=== PATIENT | male | born 1980 | race Caucasian/White ===

== ENCOUNTER 2017-05-22 11:31 | Inpatient (IN) | payer BC ==
[2017-05-22 12:37] VITALS: BMI 27.4
--- NOTE | 2017-05-22 14:28 | HP ---
HISTORY OF PRESENT ILLNESS: 37 yr old man bipolar d/o, cocaine dependence, methadone maintanence, depression presents for detox. tired of feeling this way, wants to change his life around. 6-pk of beer, 10:30am this morning, cocaine shooting 3 days ago on right wrist, benzos "1/2 stick" this morning, methadone 70mg po this morning from clinic. went to [facility] on 05/20 for 3stitches left palm, with wound on lateral 5th digit and open wound in lateral hand. Recent Travel: denies PAST MEDICAL HISTORY: etoh withdrawal: denies seizure, DT, ICU stay bipolar d/o methadone maintenence PAST SURGICAL HISTORY: denies Social History: Smokin/2 pks/day, started age 16 yrs old Alcohol: Drugs: Family History: denies HTN, DM, cancer in family. Mariya, ( Healthcare proxy) Allergies Fish Containing Products Allergy (Severe, Verified 05/22/17 14:24) Hives No Known Drug Allergies Allergy (Verified 05/22/17 14:24) HOME MEDICATIONS: Home Medications Medication Instructions Recorded NK [No Known Home Medication] 03/19/15 REVIEW OF SYSTEMS CONSTITUTIONAL: Present: chills, weight change: unintentional weight loss over 4 months, loss of appetite, Absent: fever, chills, diaphoresis, generalized weakness, malaise, l HEENT: Present: rhinorrhea Absent: rhinorrhea, nasal congestion, throat pain, throat swelling, difficulty swallowing, mouth swelling, ear pain, eye pain, visual changes CARDIOVASCULAR: Present: lightheaded Absent: chest pain, syncope, palpitations, irregular heart rate, lightheadedness , peripheral edema RESPIRATORY: Absent: cough, shortness of breath, dyspnea with exertion, orthopnea, wheezing, stridor, hemoptysis GASTROINTESTINAL: Present: abdominal pain, diarrhea Absent: abdominal distension, nausea, vomiting, constipation, melena, hematochezia GENITOURINARY: Absent: dysuria, frequency, urgency, hesitancy, hematuria, flank pain, genital pain MUSCULOSKELETAL: Absent: myalgia, arthralgia, joint swelling, back pain, neck pain SKIN: Absent: rash, itching, pallor HEMATOLOGIC/IMMUNOLOGIC: Absent: easy bleeding, easy bruising, lymphadenopathy, frequent infections ENDOCRINE: Absent: unexplained weight gain, unexplained weight loss, heat intolerance, cold intolerance NEUROLOGIC: Present: headache, Absent: focal weakness or paresthesias, dizziness, unsteady gait, seizure, mental status changes, bladder or bowel incontinence PSYCHIATRIC: Present: anxiety, depression Absent: , depression, suicidal or homicidal ideation, hallucinations. PHYSICAL EXAMINATION Vital Signs - 24 hr 05/22/17 12:34 Temperature 96.9 F L Pulse Rate 81 Respiratory 18 Rate Blood Pressure 121/72 GENERAL: Awake, alert, and fully oriented, in no acute distress. HEAD: Normal with no signs of trauma. EYES: SHAILA, EOMI, sclera anicteric, conjunctiva clear. No lid lag. EARS, NOSE, THROAT: nares patent, oropharynx clear without exudates. dry mucous membranes. NECK: Normal range of motion, supple without lymphadenopathy LUNGS: Breath sounds equal, clear to auscultation bilaterally. No wheezes, and no crackles. No accessory muscle use. HEART: Regular rate and rhythm, normal S1 and S2 without murmur, rub or gallop. ABDOMEN: Soft, +tender in LUQ, not distended, normoactive bowel sounds, no guarding, no rebound, no masses. MUSCULOSKELETAL: Normal range of motion at all joints. No bony deformities or tenderness. No CVA tenderness. UPPER EXTREMITIES: b/l 2+ radial pulses, warm, well-perfused. No cyanosis. No clubbing. No peripheral edema. left hand with abrasion in dorsum lateral hand - no discharge, no surrounding erythema, nontender to palpation. left lateral palm with well-approximated 3 stitchs without underlying fluctuation/erythema, mildly ttp. pinky in dressing. sensation intact in forearm/hand. decr range of motion in making a fist due to dressing. NEUROLOGICAL: Cranial nerves II-XII intact. Normal speech, facial symmetry. Normal gait. PSYCHIATRIC: Cooperative. Good eye contact. Appropriate mood and affect. SKIN: Warm, dry, decr turgor, no rashes noted, normal capillary refill. multiple injection sites in right hand and forearm without signs of infection URINE DRUG SCREEN RESULTS Drug Screen Negative No Urine Drug Screen Results SHANTHI-Cocaine,BZO-Benzodiazepines,MTD-Methadone,OXY - Oxycodone Active Medications Acetaminophen (Tylenol -) 650 mg PO Q4H PRN PRN Reason: FEVER OR PAIN Al Hydroxide/Mg Hydroxide (Mylanta Oral Suspension -) 30 ml PO Q6H PRN PRN Reason: DYSPEPSIA Diazepam (Valium -) 10 mg PO ONCE ONE Stop: 05/22/17 14:53 Diazepam (Valium -) 5 mg PO TID [facility] Stop: 05/23/17 22:01 Diazepam (Valium -) 5 mg PO BID [facility] Stop: 05/25/17 22:01 Diazepam (Valium -) 5 mg PO DAILY [facility] Stop: 05/26/17 10:01 Diazepam (Valium -) 10 mg PO Q4H PRN PRN Reason: WITHDRAWAL(CONT SUBST) Stop: 05/25/17 14:51 Eucalyptus/Menthol/Phenol/Sorbitol (Cepastat Lozenge -) 1 each MM Q4H PRN PRN Reason: SORE THROAT Guaifenesin (Robitussin Dm -) 10 ml PO Q6H PRN PRN Reason: COUGH Ibuprofen (Motrin -) 400 mg PO Q6H PRN PRN Reason: SEVERE PAIN Loperamide HCl (Imodium -) 4 mg PO Q6H PRN PRN Reason: DIARRHEA Magnesium Citrate (Citroma -) 300 ml PO Q48H PRN PRN Reason: CONSTIPATION Magnesium Hydroxide (Milk Of Magnesia -) 30 ml PO DAILY PRN PRN Reason: CONSTIPATION Methadone HCl (Dolophine -) 70 mg PO DAILY@0600 [facility] Nicotine Polacrilex (Nicorette Gum -) 2 mg BC Q2H PRN PRN Reason: NICOTINE REPLACEMENT RX Multivit/Folic Acid/Iron ( Vitamins (Sjr) -) 1 tab PO DAILY [facility] Pseudoephedrine/Triprolidine (Actifed -) 1 combo PO TID PRN PRN Reason: NASAL CONGESTION Thiamine HCl (Vitamin B1 -) 100 mg PO HS [facility] Tuberculin PPD (Tubersol ([facility] Only) 5ml Vial) units ID ONCE ONE Stop: 05/22/17 14:53 ASSESSMENT/PLAN: 37 yr man with polysubstance use, bipolar d/o and depression presents for detox. #ETOH/Benzodiazapine - Valium detox protocol #Depression - psychiatry consult #Left hand wound - dressing changes daily - received tetanus shot at [facility], stitches to be removed 06/11/2017 at [place] - monitor for s/s for infection, defer abx for now Problem List - Problem (1) Depression Code(s): F32.9 - MAJOR DEPRESSIVE DISORDER, SINGLE EPISODE, UNSPECIFIED (2) Methadone dependence Code(s): F11.20 - OPIOID DEPENDENCE, UNCOMPLICATED (3) Dehydration Code(s): E86.0 - DEHYDRATION (4) Opioid dependence with withdrawal Code(s): F11.23 - OPIOID DEPENDENCE WITH WITHDRAWAL (5) Nicotine dependence Code(s): F17.200 - NICOTINE DEPENDENCE, UNSPECIFIED, UNCOMPLICATED Qualifiers: Nicotine product type: cigarettes Substance use status: uncomplicated Qualified Code(s): F17.210 - Nicotine dependence, cigarettes, uncomplicated (6) Alcohol abuse Code(s): F10.10 - ALCOHOL ABUSE, UNCOMPLICATED Visit type - Emergency Visit Emergency Visit: No - New Patient This patient is new to me today: Yes Date on this admission: 05/22/17 - Critical Care Critical Care patient: No [facility] CIWA - CIWA Score Nausea/Vomitin Muscle Tremors: 1-None Visible, but [place] Anxiety: 3 Agitation: 0-Normal Activity Paroxysmal Sweats: 1-Minimal Palms Moist Orientation: 0-Oriented Tacttile Disturbances: 0-None Auditory Disturbances: 0-None Visual Disturbances: 0-None Headache: 3-Moderate CIWA-Ar Total Score: 10
[2017-05-22] MEDS ORDERED: IBUPROFEN 400 MG TABLET (FP) PO PRN (14:52)
[2017-05-22] MEDS ORDERED: MAG HYDROX/AL HYDROX/SIMETH 30 ML UNIT-DOSE CUP PO PRN (14:52)
[2017-05-22] MEDS ORDERED: ACETAMINOPHEN 325 MG TABLET (FP) PO PRN (14:52)
[2017-05-22] MEDS ORDERED: guaiFENesin/D-METHORPHAN HB 10 ML UNIT-DOSE CUPS PO PRN (14:52)
[2017-05-22] MEDS ORDERED: MAGNESIUM HYDROX 2400MG/30ML ORAL SUSPENSION 30 ML CUP PO PRN (14:52)
[2017-05-22] MEDS ORDERED: MAGNESIUM CITRATE 300 ML BOTTLE PO PRN (14:52)
[2017-05-22] MEDS ORDERED: P-EPHED 60MG/TRIPROLIDI 2.5MG TABLET PO PRN (14:52)
[2017-05-22] MEDS ORDERED: diazePAM 5 MG TABLET PO ONE ×2 (14:52→17:15)
[2017-05-22] MEDS ORDERED: MENTHOL/PHENOL 1 EACH UD MM PRN (14:52)
[2017-05-22] MEDS: diazePAM 5 MG TABLET PO SCH ×2 (17:30→22:34)
[2017-05-22 21:45] LABS: URINE APPEARANCE CLEAR; URINE BILIRUBIN NEGATIVE (NEGATIVE); URINE BLOOD NEGATIVE (NEGATIVE); URINE COLOR STRAW; URINE GLUCOSE (UA) NEGATIVE (NEGATIVE); URINE KETONE NEGATIVE (NEGATIVE); URINE LEUK ESTERASE NEGATIVE (NEGATIVE); URINE NITRITE NEGATIVE (NEGATIVE); URINE PROTEIN NEGATIVE (NEGATIVE); URINE UROBILINOGEN NEGATIVE mg/dL (0.2-1.0)
[2017-05-22] MEDS: THIAMINE HCL 100 MG TABLET (FP) PO SCH (22:34)
[2017-05-22] MEDS: NICOTINE POLACRILEX 2 MG GUM BUC PRN (22:35)
[2017-05-22 22:45] LABS: URINE LEUK ESTERASE Negative (NEGATIVE)
[2017-05-23] MEDS: diazePAM 5 MG TABLET PO SCH ×3 (05:40→22:26)
[2017-05-23] MEDS: METHADONE 40 MG, METHADONE 30 MG PO SCH (05:43)
[2017-05-23] MEDS ORDERED: METHADONE HCL 40 MG DISPERSABLE TABLET ONE (05:43)
[2017-05-23] MEDS ORDERED: METHADONE HCL 10 MG TABLET ONE (05:43)
[2017-05-23] MEDS ORDERED: METHADONE HCL 10 MG TABLET PO SCH (06:00)
--- NOTE | 2017-05-23 08:25 | CONSULT ---
[facility] Psychiatric Consult - Data Date of interview: 05/23/17 Admission source: [facility] Identifying data: This is 37 yeats old male with MDD history, psychiatric hospitalization history intoxicated with: Opioids, Alcohol and Nicotine Substance Abuse History: Patient reports unclear history of Alcohol, Opioids and Nicotine abuse/dependency, reports current MMTP 50mg per day Medical History: MMTP 50mg per day Psychiatric History: Patient reports history of depression reports most recent psychiatric admission on: 291 at [facility] with suicidal ideations, denies hisotry of suicidal attempts, reports taking pr4ior to admission: Trazodone 50mg po qhs Physical/Sexual Abuse/Trauma History: Denies Additional Comment: Trazodone 50mg po qhs Mental Status Exam - Mental Status Exam Alert and Oriented to: Person Cognitive Function: Fair Patient Appearance: Unkempt Mood: Sad Affect: Flat Patient Behavior: Sedated Speech Pattern: Delayed Voice Loudness: Mildly Soft/Quiet Thought Process: Circumstantial Thought Disorder: Being Controlled Hallucinations: Denies Suicidal Ideation: Denies Homicidal Ideation: Denies Insight/Judgement: Fair Sleep: Difficulty falling asleep Appetite: Fair Muscle strength/Tone: Mild Hypotonicity Gait/Station: Shuffling Additional Comments: Trazodone 50mg po qhs Psychiatric Findings - Problem List ([place] 1, 2,3) (1) Methadone dependence Current Visit: Yes Status: Acute (2) Opioid dependence on agonist therapy Current Visit: Yes Status: Acute (3) MDD (major depressive disorder), recurrent episode Current Visit: No Status: Acute (4) MDD (major depressive disorder), recurrent, in full remission Current Visit: No Status: Acute (5) Nicotine dependence Current Visit: No Status: Chronic Qualifiers: Nicotine product type: cigarettes Substance use status: uncomplicated Qualified Code(s): F17.210 - Nicotine dependence, cigarettes, uncomplicated (6) Opioid dependence with withdrawal Current Visit: No Status: Chronic (7) Sedative/hypnotic withdrawal without complication Current Visit: No Status: Chronic - Initial Treatment Plan Initial Treatment Plan: Trazodone 50mg po qhs
--- NOTE | 2017-05-23 09:20 | PN ---
S CIWA - CIWA Score Nausea/Vomitin Muscle Tremors: 3 Anxiety: 3 Agitation: 3 Paroxysmal Sweats: 3 Orientation: 0-Oriented Tacttile Disturbances: 1-Very Mild Itch/Numbness Auditory Disturbances: 0-None Visual Disturbances: 0-None Headache: 1-Very Mild CIWA-Ar Total Score: 17 S Progress Note (SOAP) Subjective: nausea, sweats, interrupted sleep, anxiety, tremors Objective: 05/23/17 09:20 Vital Signs - 8 hr 05/23/17 05/23/17 03:30 05:43 Temperature 96.8 F L Pulse Rate 61 Respiratory 18 16 Rate Blood Pressure 125/78 Laboratory Tests 05/22/17 21:00 Urine Color Straw Urine Appearance Clear Urine pH 6.0 Ur Specific [place] 1.004 Urine Protein Negative Urine Glucose (UA) Negative Urine Ketones Negative Urine Blood Negative Urine Nitrite Negative Urine Bilirubin Negative Urine Urobilinogen Negative Ur Leukocyte Esterase Negative labs still pending Assessment: 05/23/17 09:20 withdrawal sx, cont detox, fluids, encourage ambualtion
[2017-05-23 10:29] LABS: ALBUMIN 4.2 g/dl (3.4-5.0); ALK PHOS 167 U/L (45-117); ANION GAP 6 (8-16); BILIRUBIN,TOTAL 0.6 mg/dL (0.2-1.0); CALCIUM 9.3 mg/dL (8.5-10.1); CO2 29 mmol/L (21-32); GLUCOSE,RANDOM 86 mg/dL (74-106); SGOT/AST 50 U/L (15-37); SGPT/ALT 128 U/L (12-78); TOT PROT 8.1 g/dl (6.4-8.2)
[2017-05-23] MEDS: PRENATAL VITAMINS W/ FOLIC ACID TABLET (FP) PO SCH (10:34)
[2017-05-23] MEDS: LOPERAMIDE HCL 2 MG CAPSULE PO PRN (10:35)
[2017-05-23] MEDS: diazePAM 5 MG TABLET PO PRN ×2 (10:35→18:01)
[2017-05-23 10:48] LABS: MCH 28.5 pg (25.7-33.7); MCHC 32.3 g/dl (32.0-35.9); MEAN CELL VOLUME 88.1 fl (80-96); MEAN PLT VOLUME 8.6 fl (7.5-11.1); PLATELET COUNT 341 K/MM3 (134-434); RDW 13.7 % (11.9-15.9); WHITE BLOOD COUNT 10.9 K/mm3 (4.0-10.0)
[2017-05-23 11:48] LABS: HIV 1 & 2 AB NEGATIVE; HIV 1 AGp24 NEGATIVE
--- NOTE | 2017-05-23 12:59 | EKG ---
Test Reason : Blood Pressure : / mmHG Vent. Rate : 071 BPM Atrial Rate : 071 BPM P-R Int : 176 ms QRS Dur : 102 ms QT Int : 406 ms P-R-T Axes : 042 041 013 degrees QTc Int : 441 ms NORMAL SINUS RHYTHM SEPTAL INFARCT , AGE UNDETERMINED ABNORMAL ECG NO PREVIOUS ECGS AVAILABLE Confirmed by FRANCOISE ZIMMER MD ([id number]) on 05/23/2017 12:59:35 PM Referred By: Chris Marks Confirmed By:FRANCOISE ZIMMER MD
[2017-05-23] MEDS: NICOTINE POLACRILEX 2 MG GUM BUC PRN ×2 (14:18→20:48)
[2017-05-23] MEDS: traZODone HCL 50 MG TABLET (FP) PO SCH (22:26)
[2017-05-23] MEDS: THIAMINE HCL 100 MG TABLET (FP) PO SCH (22:26)
[2017-05-24] MEDS ORDERED: METHADONE HCL 40 MG DISPERSABLE TABLET ONE (05:37)
[2017-05-24] MEDS ORDERED: METHADONE HCL 10 MG TABLET ONE (05:38)
[2017-05-24] MEDS: METHADONE 40 MG, METHADONE 30 MG PO SCH (05:50)
[2017-05-24] MEDS: diazePAM 5 MG TABLET PO PRN ×3 (05:50→18:32)
[2017-05-24] MEDS: PRENATAL VITAMINS W/ FOLIC ACID TABLET (FP) PO SCH (10:56)
[2017-05-24] MEDS: diazePAM 5 MG TABLET PO SCH ×2 (10:56→22:53)
[2017-05-24] MEDS: NICOTINE POLACRILEX 2 MG GUM BUC PRN ×3 (10:57→17:59)
--- NOTE | 2017-05-24 15:03 | PN ---
[facility] CIWA - CIWA Score Nausea/Vomitin-Mild Nausea/No Vomiting Muscle Tremors: 4-Moderate,w/Arms Extend Anxiety: 4-Mod. Anxious/Guarded Agitation: 4-Moderately Restless Paroxysmal Sweats: 3 Orientation: 0-Oriented Tacttile Disturbances: 1-Very Mild Itch/Numbness Auditory Disturbances: 0-None Visual Disturbances: 0-None Headache: 0-None Present CIWA-Ar Total Score: 17 [facility] Progress Note (SOAP) Subjective: Anxious, irritable, sweating Objective: 05/24/17 15:02 Last Vital Signs Temp Pulse Resp BP Pulse Ox 97.5 F L 79 20 137/83 05/24/17 13:54 05/24/17 13:54 05/24/17 13:54 05/24/17 13:54 Laboratory Tests 05/22/17 05/23/17 05/23/17 21:00 06:00 06:00 WBC 10.9 H D RBC 4.52 Hgb 12.9 Hct 39.8 MCV 88.1 MCH 28.5 MCHC 32.3 RDW 13.7 Plt Count 341 MPV 8.6 Sodium Potassium Chloride Carbon Dioxide Anion Gap BUN Creatinine Creat Clearance w eGFR Random Glucose Calcium Total Bilirubin AST ALT Alkaline Phosphatase Total Protein Albumin Urine Color Straw Urine Appearance Clear Urine pH 6.0 Ur Specific [place] 1.004 Urine Protein Negative Urine Glucose (UA) Negative Urine Ketones Negative Urine Blood Negative Urine Nitrite Negative Urine Bilirubin Negative Urine Urobilinogen Negative Ur Leukocyte Esterase Negative RPR Titer HIV 1&2 Antibody Screen Negative HIV P24 Antigen Negative 05/23/17 05/23/17 06:00 06:00 WBC RBC Hgb Hct MCV MCH MCHC RDW Plt Count MPV Sodium 139 Potassium 3.9 D Chloride 104 Carbon Dioxide 29 Anion Gap 6 L BUN 6 L D Creatinine 1.0 Creat Clearance w eGFR > 60 Random Glucose 86 Calcium 9.3 Total Bilirubin 0.6 D AST 50 H D ALT 128 H D Alkaline Phosphatase 167 H Total Protein 8.1 Albumin 4.2 Urine Color Urine Appearance Urine pH Ur Specific [place] Urine Protein Urine Glucose (UA) Urine Ketones Urine Blood Urine Nitrite Urine Bilirubin Urine Urobilinogen Ur Leukocyte Esterase RPR Titer Nonreactive HIV 1&2 Antibody Screen HIV P24 Antigen Labs noted Assessment: 05/24/17 15:02 Withdrawal symptoms Plan: Continue detox
[2017-05-24] MEDS: LOPERAMIDE HCL 2 MG CAPSULE PO PRN (18:34)
[2017-05-24] MEDS: traZODone HCL 50 MG TABLET (FP) PO SCH (22:53)
[2017-05-24] MEDS: THIAMINE HCL 100 MG TABLET (FP) PO SCH (22:53)
[2017-05-25] MEDS ORDERED: METHADONE HCL 40 MG DISPERSABLE TABLET ONE (05:28)
[2017-05-25] MEDS ORDERED: METHADONE HCL 10 MG TABLET ONE (05:28)
[2017-05-25] MEDS: METHADONE 40 MG, METHADONE 30 MG PO SCH (05:31)
[2017-05-25] MEDS: diazePAM 5 MG TABLET PO SCH ×2 (10:44→22:35)
[2017-05-25] MEDS: PRENATAL VITAMINS W/ FOLIC ACID TABLET (FP) PO SCH (10:44)
[2017-05-25] MEDS: NICOTINE POLACRILEX 2 MG GUM BUC PRN ×3 (10:46→18:14)
[2017-05-25] MEDS: BACITRACIN 0.9 GM PACKET TP SCH ×2 (11:28→22:35)
[2017-05-25] MEDS: LOPERAMIDE HCL 2 MG CAPSULE PO PRN ×2 (12:59→22:38)
--- NOTE | 2017-05-25 14:44 | PN ---
[facility] Progress Note (SOAP) Subjective: Sweating, diarrhea, anxious, irritable Objective: 05/25/17 14:40 Last Vital Signs Temp Pulse Resp BP Pulse Ox 96.8 F L 79 18 108/58 05/25/17 14:40 05/25/17 14:40 05/25/17 14:40 05/25/17 14:40 Laboratory Tests 05/22/17 05/23/17 05/23/17 21:00 06:00 06:00 WBC 10.9 H D RBC 4.52 Hgb 12.9 Hct 39.8 MCV 88.1 MCH 28.5 MCHC 32.3 RDW 13.7 Plt Count 341 MPV 8.6 Sodium Potassium Chloride Carbon Dioxide Anion Gap BUN Creatinine Creat Clearance w eGFR Random Glucose Calcium Total Bilirubin AST ALT Alkaline Phosphatase Total Protein Albumin Urine Color Straw Urine Appearance Clear Urine pH 6.0 Ur Specific [place] 1.004 Urine Protein Negative Urine Glucose (UA) Negative Urine Ketones Negative Urine Blood Negative Urine Nitrite Negative Urine Bilirubin Negative Urine Urobilinogen Negative Ur Leukocyte Esterase Negative RPR Titer HIV 1&2 Antibody Screen Negative HIV P24 Antigen Negative 05/23/17 05/23/17 06:00 06:00 WBC RBC Hgb Hct MCV MCH MCHC RDW Plt Count MPV Sodium 139 Potassium 3.9 D Chloride 104 Carbon Dioxide 29 Anion Gap 6 L BUN 6 L D Creatinine 1.0 Creat Clearance w eGFR > 60 Random Glucose 86 Calcium 9.3 Total Bilirubin 0.6 D AST 50 H D ALT 128 H D Alkaline Phosphatase 167 H Total Protein 8.1 Albumin 4.2 Urine Color Urine Appearance Urine pH Ur Specific [place] Urine Protein Urine Glucose (UA) Urine Ketones Urine Blood Urine Nitrite Urine Bilirubin Urine Urobilinogen Ur Leukocyte Esterase RPR Titer Nonreactive HIV 1&2 Antibody Screen HIV P24 Antigen Labs noted Assessment: 05/25/17 14:43 Withdrawal symptoms Plan: Continue detox Encouraged to drink lots of water for hydration
[2017-05-25] MEDS: THIAMINE HCL 100 MG TABLET (FP) PO SCH (22:35)
[2017-05-25] MEDS: traZODone HCL 50 MG TABLET (FP) PO SCH (22:35)
[2017-05-26] MEDS ORDERED: METHADONE HCL 10 MG TABLET ONE (04:43)
[2017-05-26] MEDS ORDERED: METHADONE HCL 40 MG DISPERSABLE TABLET ONE (04:43)
[2017-05-26] MEDS: METHADONE 40 MG, METHADONE 30 MG PO SCH (05:33)
[2017-05-26 06:13] VITALS: BP 109/59; PULSE 76; TEMP 97.9
[2017-05-26] MEDS ORDERED: diazePAM 5 MG TABLET PO SCH (10:00)
== END 2017-05-26 07:05 | disposition home or self-care (01) | DRG 773 ==
LOC: YASAS 11:31 → Y6N 17:00
PROVIDERS: ADMIT Internal Medicine; ATTEND Internal Medicine
PROC: HZ2ZZZZ Detoxification Services for Substance Abuse Treatment (ICD-10-PCS; principal; 2017-05-22)
DX: F13.230 Sedative, hypnotic or anxiolytic dependence with withdrawal, uncomplicated (principal); F11.20 Opioid dependence, uncomplicated; F10.10 Alcohol abuse, uncomplicated; F17.210 Nicotine dependence, cigarettes, uncomplicated; F33.9 Major depressive disorder, recurrent, unspecified; E86.0 Dehydration
CPT/HCPCS: 36415; 80053; 81003; 85027; 86593; 87389; 93005; 93010